=== PATIENT | male | born 1975 | race Asian ===

== ENCOUNTER 2022-05-18 08:55 | Outpatient (CLI) | payer OTHER | END 2022-05-18 08:56 | disposition home or self-care (01) | LOC: LABBT 08:55 | PROVIDERS: ATTEND Orthopaedic Surgery | DX: Z01.818 Encounter for other preprocedural examination (principal); M17.0 Bilateral primary osteoarthritis of knee | CPT/HCPCS: 71046; 80048; 81003; 85025; 85610; 86850; 86900; 86901; 87081; 87811; 93005; 93010 ==

== ENCOUNTER 2022-05-18 09:00 | Inpatient (IN) | payer OTHER ==
[2022-05-18 10:02] LABS: Bilirubin Neg (Negative); Blood, Urine Negative (Negative); Clarity Clear (Clear); Glucose, Urine (Dipstick) Normal (Negative); Ketone, Urine Negative (Negative); Leukocyte Negative (Negative); Nitrite Negative (Negative); Protein, Urine (Dipstick) 15 mg/dl (Neg-Trace); Specific Gravity, Urine 1.005 (1.002-1.036); Urobilinogen Normal mg/dL (Less than 2)
[2022-05-18 10:02] LABS: #Basophils 0.1 10x3/uL (0.0-0.2); #Eosinphils 0.4 10x3/uL (0.0-0.5); #Monocytes 0.6 10x3/uL (0.0-1.1); #Neutrophils 3.8 10x3/uL (1.5-8.4); %Basophils 0.7 % (0.0-2.0); %Lymphocytes 40.5 % (18.0-47.0); %Monocytes 6.8 % (0.0-10.0); %Neutrophils 46.4 % (40.0-75.0); Mean Corpuscular HGB CONC 33.9 g/dL (32.0-36.0); Mean Corpuscular Hemoglobin 29.8 pg (27.0-33.0); Mean Corpuscular Volume 87.9 fl (81.2-95.1); Mean Platelet Volume 9.3 fl (7.4-10.4); Platelet Count 280 10x3/uL (150-450); RBC Distribution Width 13.2 % (11.5-14.5); Red Blood Cell (RBC) Count 5.37 10x6/uL (4.32-5.72); White Blood Cell (WBC) Count 8.2 10x3/uL (3.5-10.5)
[2022-05-18 10:09] LABS: INR-International Normal Ratio 0.9; Prothrombin Time 9.9 sec (9.5-12.1)
[2022-05-18 10:34] LABS: Anion Gap 10 mmol/L (10-20); BUN (Urea Nitrogen) 11 mg/dL (8.9-20.6); Calc. Creatinine Clearance 0 mL/min (70-130); Calcium 8.9 mg/dL (7.8-10.44); Carbon Dioxide 27 mmol/L (22-29); Chloride 109 mmol/L (98-107); Estimated GFR 113; Glucose 85 mg/dL (70-105); Potassium 4.5 mmol/L (3.5-5.1); Sodium 141 mmol/L (136-145)
[2022-05-19 10:59] VITALS: BMI 38.0
[2022-05-23] MEDS ORDERED: Vancomycin (BATCH) 1.5 GRAM/300 ML BAG ONE (06:06)
[2022-05-23] MEDS ORDERED: Sodium Chloride 0.9% 100 ML ONE (06:06)
[2022-05-23] MEDS ORDERED: Tranexamic Acid 1,000 MG/10 ML VIAL ONE ×2 (06:06→09:42)
[2022-05-23] MEDS ORDERED: Lidocaine 1% (PF) 30 ML VIAL ONE (06:28)
[2022-05-23] MEDS ORDERED: methylPREDNISolone Acetate 40 mg/ml Vial ONE (06:28)
[2022-05-23] MEDS ORDERED: Bupivacaine PF 0.5% 30 ML VIAL ONE (06:28)
[2022-05-23] MEDS ORDERED: Midazolam HCl 2 mg/2 ml Vial ONE (06:45)
[2022-05-23] MEDS ORDERED: Fentanyl 100 MCG/2 ML VIAL ONE ×2 (06:45→09:51)
[2022-05-23] MEDS ORDERED: Lidocaine 1% PF 5 ML VIAL ONE ×2 (06:46→07:15)
[2022-05-23] MEDS ORDERED: Clindamycin/D5W 600 mg/50 ml Premix Bag ONE (06:50)
[2022-05-23] MEDS ORDERED: Ondansetron PF 4 MG/2 ML Vial ONE (07:15)
[2022-05-23] MEDS ORDERED: Dexamethasone 20 MG/5 ML VIAL ONE (07:15)
[2022-05-23] MEDS ORDERED: Bupivacaine HCl 0.5%/Epinephrine 1:200,000/PF 30 ml Vial ONE (07:15)
[2022-05-23] MEDS ORDERED: PROPOFOL 200 MG/20 ML VIAL ONE (07:15)
[2022-05-23] MEDS ORDERED: Promethazine HCl 25 MG/ML VIAL IM PRN ×3 (07:16→09:15)
[2022-05-23] MEDS ORDERED: HYDROcodone/Acetaminophen 10/325 mg Tablet PO PRN ×4 (07:16→07:30)
[2022-05-23] MEDS ORDERED: Fentanyl 100 MCG/2 ML VIAL SLOW IVP PRN ×2 (07:16→07:28)
[2022-05-23] MEDS ORDERED: traMADol HCl 50 MG TAB PO PRN ×3 (07:16→07:30)
[2022-05-23] MEDS ORDERED: Ondansetron PF 4 MG/2 ML Vial IVP PRN ×2 (07:16→07:30)
[2022-05-23] MEDS ORDERED: Zolpidem Tartrate 5 MG TAB PO PRN ×2 (07:16→07:30)
[2022-05-23] MEDS ORDERED: Acetaminophen 325 MG TAB PO PRN (07:16)
[2022-05-23] MEDS ORDERED: diphenhydrAMINE 25 MG CAP PO PRN (07:16)
[2022-05-23] MEDS ORDERED: Tranexamic Acid 1,000 MG in Sodium Chloride 0.9% 100 ML IVPB SCH (07:30)
[2022-05-23] MEDS ORDERED: Ropivacaine 0.2% 550 ML 550 ML NERVE BLCK SCH (07:30)
[2022-05-23] MEDS ORDERED: fentaNYL Citrate/PF 100 MCG/2 ML SYRINGE ONE ×2 (07:44→09:01)
[2022-05-23] MEDS ORDERED: Ondansetron HCl/PF 4 MG/2 ML Vial IVP PRN (09:15)
[2022-05-23] MEDS ORDERED: Promethazine HCl 25 MG/ML VIAL IVPB PRN (09:15)
[2022-05-23] MEDS: Aspirin 81 mg Enteric Coated Tablet PO SCH ×2 (10:57→21:17)
[2022-05-23] MEDS ORDERED: Tamsulosin HCl 0.4 MG CAP PO SCH (12:30)
[2022-05-23] MEDS: Clindamycin/D5W 900 MG in Premix Bag 1 BAG IVPB SCH ×2 (12:46→21:16)
[2022-05-23] MEDS: Ketorolac Tromethamine 30 MG/ML VIAL IVP SCH ×2 (12:46→17:21)
[2022-05-23] MEDS: Sodium Chloride 0.9% 1,000 ML IV SCH ×2 (12:50→17:21)
[2022-05-23] MEDS ORDERED: Ketorolac Tromethamine 30 MG/ML VIAL IVP SCH (14:00)
[2022-05-23] MEDS ORDERED: Vancomycin 1.5 GRAM/300 ML BAG 1.5 GM in Premix Bag 1 BAG IVPB SCH (20:00)
[2022-05-24] MEDS: Ketorolac Tromethamine 30 MG/ML VIAL IVP SCH ×3 (01:09→11:56)
[2022-05-24] MEDS: Sodium Chloride 0.9% 1,000 ML IV SCH (04:14)
[2022-05-24 05:34] LABS: Hemoglobin 13.2 g/dL (14.0-18.0); Mean Corpuscular HGB CONC 32.7 g/dL (32.0-36.0); Mean Corpuscular Hemoglobin 30.7 pg (27.0-31.0); Mean Corpuscular Volume 93.8 fL (78.0-98.0); Mean Platelet Volume 7.3 fL (7.4-10.4); Platelet Count 231 thou/uL (130-400); RBC Distribution Width 12.8 % (11.5-14.5); Red Blood Cell (RBC) Count 4.31 mill/uL (4.70-6.10); White Blood Cell (WBC) Count 23.1 thou/uL (4.8-10.8)
[2022-05-24] MEDS ORDERED: Ferrous Gluconate 324 MG TAB PO SCH (08:00)
[2022-05-24 08:08] VITALS: TEMP 98.4
[2022-05-24] MEDS: Aspirin 81 mg Enteric Coated Tablet PO SCH (08:48)
[2022-05-24] MEDS ORDERED: Multivitamin W/ Minerals 1 TAB PO SCH (09:00)
[2022-05-24] MEDS ORDERED: Senokot S 8.6-50 MG TAB PO SCH (09:00)
[2022-05-24 12:14] VITALS: BP 128/78
== END 2022-05-24 15:35 | disposition home or self-care (01) | DRG 470 ==
LOC: SURG A 05-23 05:32 → SJJU 05-23 10:40
PROVIDERS: ADMIT Orthopaedic Surgery; ATTEND Orthopaedic Surgery
PROC: 0SRD0J9 Replacement of Left Knee Joint with Synthetic Substitute, Cemented, Open Approach (ICD-10-PCS; principal; 2022-05-23)
PROC: 3E0U33Z Introduction of Anti-inflammatory into Joints, Percutaneous Approach (ICD-10-PCS; 2022-05-23)
DX: M17.0 Bilateral primary osteoarthritis of knee (principal); F41.9 Anxiety disorder, unspecified; E78.00 Pure hypercholesterolemia, unspecified; F17.210 Nicotine dependence, cigarettes, uncomplicated; Z98.890 Other specified postprocedural states; Z88.0 Allergy status to penicillin; Z20.822 Contact with and (suspected) exposure to COVID-19
CPT/HCPCS: 36415; 80048; 81003; 85025; 85027; 85610; 86850; 86900; 86901; 87081; 87811; A4306; C1713; C1776; J1100; J1885; J2001; J2250; J2405; J2704; J2795; J2920; J3010; J3370; J3490; J7050; S0020

== ENCOUNTER 2023-02-10 09:48 | Outpatient (CLI) | payer OTHER | END 2023-02-10 09:49 | disposition home or self-care (01) | LOC: LABBT 09:48 | PROVIDERS: ATTEND Orthopaedic Surgery | DX: Z01.818 Encounter for other preprocedural examination (principal); M17.11 Unilateral primary osteoarthritis, right knee | CPT/HCPCS: 71046; 93005; 93010 ==

== ENCOUNTER 2023-02-13 05:38 | Observation (INO) | payer OTHER ==
[2023-02-10 10:26] VITALS: BMI 36.5
[2023-02-10 11:23] LABS: #Basophils 0.1 10x3/uL (0.0-0.2); #Eosinphils 0.5 10x3/uL (0.0-0.5); #Monocytes 0.8 10x3/uL (0.0-1.1); #Neutrophils 4.3 10x3/uL (1.5-8.4); %Basophils 0.9 % (0.0-2.0); %Eosinophils 5.3 % (0.0-6.0); %Lymphocytes 38.2 % (18.0-47.0); %Monocytes 8.5 % (0.0-10.0); %Neutrophils 46.3 % (40.0-75.0); Hemoglobin 17.4 g/dL (13.5-17.5); Mean Corpuscular HGB CONC 33.7 g/dL (32.0-36.0); Mean Corpuscular Hemoglobin 29.8 pg (27.0-33.0); Mean Corpuscular Volume 88.5 fl (81.2-95.1); Mean Platelet Volume 9.2 fl (7.4-10.4); Platelet Count 297 10x3/uL (150-450); RBC Distribution Width 13.3 % (11.5-14.5); Red Blood Cell (RBC) Count 5.83 10x6/uL (4.32-5.72); White Blood Cell (WBC) Count 9.3 10x3/uL (3.5-10.5)
[2023-02-10 11:24] LABS: Bilirubin Neg (Negative); Blood, Urine Negative (Negative); Clarity Clear (Clear); Glucose, Urine (Dipstick) Normal (Negative); Ketone, Urine Negative (Negative); Leukocyte Negative (Negative); Nitrite Negative (Negative); Protein, Urine (Dipstick) 100 mg/dl (Neg-Trace); Specific Gravity, Urine 1.015 (1.005-1.030); Urobilinogen Normal mg/dL (Less than 2)
[2023-02-10 11:43] LABS: Prothrombin Time 10.5 sec (9.5-12.1)
[2023-02-10 11:46] LABS: Anion Gap 14 mmol/L (10-20); BUN (Urea Nitrogen) 9 mg/dL (8.9-20.6); Calc. Creatinine Clearance 0 mL/min (70-130); Calcium 9.1 mg/dL (7.8-10.44); Carbon Dioxide 25 mmol/L (22-29); Chloride 105 mmol/L (98-107); Estimated GFR 110; Glucose 76 mg/dL (70-105); Potassium 4.1 mmol/L (3.5-5.1); Sodium 140 mmol/L (136-145)
[2023-02-13] MEDS ORDERED: Sodium Chloride 0.9% 0 ML ONE (06:11)
[2023-02-13] MEDS ORDERED: CEFAZOLIN 2 GM VIAL ONE (06:11)
[2023-02-13] MEDS ORDERED: Tranexamic Acid 1,000 MG/10 ML VIAL ONE ×2 (06:11→10:04)
[2023-02-13] MEDS ORDERED: Vancomycin (BATCH) 1.5 GRAM/300 ML BAG ONE (06:11)
[2023-02-13] MEDS ORDERED: Bupivacaine PF 0.5% 30 ML VIAL ONE ×2 (06:11→11:41)
[2023-02-13] MEDS ORDERED: Sodium Chloride 0.9% 100 ML ONE (06:12)
[2023-02-13] MEDS ORDERED: Fentanyl 250 MCG/5 ML VIAL ONE ×2 (06:19→09:48)
[2023-02-13] MEDS ORDERED: Lidocaine 2% 6 ML SYR ONE (06:19)
[2023-02-13] MEDS ORDERED: Midazolam HCl 2 mg/2 ml Vial ONE ×2 (06:19→06:48)
[2023-02-13] MEDS ORDERED: Ondansetron PF 4 MG/2 ML Vial ONE (06:30)
[2023-02-13] MEDS ORDERED: PROPOFOL 200 MG/20 ML VIAL ONE (06:30)
[2023-02-13] MEDS ORDERED: Dexamethasone 20 MG/5 ML VIAL ONE (06:30)
[2023-02-13] MEDS ORDERED: Lidocaine 1% PF 5 ML VIAL ONE (06:30)
[2023-02-13] MEDS ORDERED: Ketorolac Tromethamine 30 MG/ML VIAL ONE (06:30)
[2023-02-13] MEDS ORDERED: fentaNYL 50 mcg/mL 1 mL Vial ONE (06:48)
[2023-02-13] MEDS ORDERED: Ropivacaine 0.2% HCl/PF 20 ML ONE (06:48)
[2023-02-13] MEDS ORDERED: Clindamycin/D5W 600 mg/50 ml Premix Bag ONE (07:05)
[2023-02-13] MEDS ORDERED: Promethazine HCl 25 MG/ML VIAL IM PRN (07:30)
[2023-02-13] MEDS ORDERED: HYDROcodone/Acetaminophen 10/325 mg Tablet PO PRN ×3 (07:30→10:30)
[2023-02-13] MEDS ORDERED: Ondansetron PF 4 MG/2 ML Vial IVP PRN (07:30)
[2023-02-13] MEDS ORDERED: Vancomycin HCl 1.5 GM in Sodium Chloride 0.9% 250 ML 300 ML IVPB SCH (07:30)
[2023-02-13] MEDS ORDERED: diphenhydrAMINE 25 MG CAP PO PRN (07:30)
[2023-02-13] MEDS ORDERED: traMADol HCl 50 MG TAB PO PRN ×3 (07:30→10:30)
[2023-02-13] MEDS ORDERED: Zolpidem Tartrate 5 MG TAB PO PRN (07:30)
[2023-02-13] MEDS ORDERED: Acetaminophen 325 MG TAB PO PRN (07:30)
[2023-02-13] MEDS ORDERED: Tranexamic Acid 1,000 MG in Sodium Chloride 0.9% 100 ML IVPB SCH (07:30)
[2023-02-13] MEDS ORDERED: fentaNYL 50 mcg/mL 1 mL Vial SLOW IVP PRN ×2 (07:57→10:29)
[2023-02-13] MEDS ORDERED: Sevoflurane 250 ML INH ANEST BOTTLE ONE (08:23)
[2023-02-13] MEDS ORDERED: HYDROmorphone 2 MG/ML VIAL ONE (10:03)
[2023-02-13] MEDS ORDERED: Ondansetron HCl/PF 4 MG/2 ML Vial IVP PRN (10:15)
[2023-02-13] MEDS ORDERED: Promethazine HCl 25 MG/ML VIAL IM/IV PRN (10:15)
[2023-02-13] MEDS ORDERED: HYDROmorphone 2 MG/ML VIAL SLOW IVP PRN (10:15)
[2023-02-13] MEDS ORDERED: hydrALAZINE 20 MG/ML VIAL ONE (10:28)
[2023-02-13] MEDS ORDERED: Ropivacaine 0.2% 550 ML 550 ML NERVE BLCK SCH (10:30)
[2023-02-13] MEDS: Multivitamin W/ Minerals 1 TAB PO SCH (12:08)
[2023-02-13] MEDS: Senokot S 8.6-50 MG TAB PO SCH ×2 (12:08→19:50)
[2023-02-13] MEDS: Ferrous Gluconate 324 MG TAB PO SCH ×2 (12:08→19:48)
[2023-02-13] MEDS: Sodium Chloride 0.9% 1,000 ML IV SCH ×2 (12:08→17:36)
[2023-02-13] MEDS: Aspirin 81 mg Enteric Coated Tablet PO SCH ×2 (12:08→19:50)
[2023-02-13] MEDS: Ketorolac Tromethamine 30 MG/ML VIAL IVP SCH ×2 (13:57→22:53)
[2023-02-13] MEDS: Clindamycin/D5W 900 MG in Premix Bag 1 BAG IVPB SCH ×2 (13:58→22:54)
[2023-02-13] MEDS ORDERED: Vancomycin 1.5 GRAM/300 ML BAG 1.5 GM in Premix Bag 1 BAG IVPB SCH (18:00)
[2023-02-14] MEDS: Sodium Chloride 0.9% 1,000 ML IV SCH (04:34)
[2023-02-14] MEDS: Ketorolac Tromethamine 30 MG/ML VIAL IVP SCH (05:00)
[2023-02-14] MEDS: HYDROcodone/Acetaminophen 10/325 mg Tablet PO PRN ×2 (05:01→08:44)
[2023-02-14] MEDS: Clindamycin/D5W 900 MG in Premix Bag 1 BAG IVPB SCH (06:17)
[2023-02-14 06:21] LABS: Hemoglobin 13.9 g/dL (14.0-18.0); Mean Corpuscular HGB CONC 34.4 g/dL (32.0-36.0); Mean Corpuscular Hemoglobin 32.3 pg (27.0-31.0); Mean Platelet Volume 7.4 fL (7.4-10.4); Platelet Count 197 10x3/uL (130-400); RBC Distribution Width 12.6 % (11.5-14.5); Red Blood Cell (RBC) Count 4.29 mill/uL (4.70-6.10); White Blood Cell (WBC) Count 14.7 10x3/uL (4.8-10.8)
[2023-02-14 07:54] VITALS: BP 133/81; TEMP 98.3
[2023-02-14] MEDS: Multivitamin W/ Minerals 1 TAB PO SCH (08:40)
[2023-02-14] MEDS: Aspirin 81 mg Enteric Coated Tablet PO SCH (08:40)
[2023-02-14] MEDS: Senokot S 8.6-50 MG TAB PO SCH (08:40)
[2023-02-14] MEDS: Ferrous Gluconate 324 MG TAB PO SCH (08:40)
== END 2023-02-14 11:05 | disposition home or self-care (01) ==
LOC: SDC 05:38 → INTOOBSV 12:06 → SURG A 12:06
PROVIDERS: ADMIT Orthopaedic Surgery; ATTEND Orthopaedic Surgery
PROC: 0SRC0J9 Replacement of Right Knee Joint with Synthetic Substitute, Cemented, Open Approach (ICD-10-PCS; principal; 2023-02-13)
DX: M17.11 Unilateral primary osteoarthritis, right knee (principal); E78.00 Pure hypercholesterolemia, unspecified; F17.210 Nicotine dependence, cigarettes, uncomplicated; Z79.899 Other long term (current) drug therapy; Z88.0 Allergy status to penicillin; Z96.652 Presence of left artificial knee joint
CPT/HCPCS: 36415; 80048; 81003; 85025; 85027; 85610; 86850; 86900; 86901; 87081; A4306; C1713; C1776; J0360; J1100; J1170; J1885; J2250; J2405; J2704; J2795; J3010; J3370; J3490; S0020